=== PATIENT | male | born 1940 | race Caucasian/White ===

== ENCOUNTER 2017-01-22 08:24 | Day surgery (SDC) | payer OTHER, MEDICARE ==
[~2017-01-22] VITALS: Ht 175.3 cm; Wt 81.6 kg
[~2017-01-22 08:24] MED LIST: ATORVASTATIN CA40 MG PO; LO-DOSE ASPIRIN81 M2 PO; METOPROLOL SUCC50 MG PO
[2017-01-22 09:11] VITALS: BP 147/70
[2017-01-22] MEDS ORDERED: NORCO 5/3251 TABLET PO (11:56)
[2017-01-22 13:16] VITALS: BP 165/76
[2017-01-22 14:20] VITALS: BP 157/91
== END 2017-01-22 14:37 | disposition home or self-care (01) ==
LOC: SDC 08:24
PROC: 0YU50JZ Supplement Right Inguinal Region with Synthetic Substitute, Open Approach (ICD-10-PCS; principal; 2017-01-22)
DX: K40.90 Unilateral inguinal hernia, without obstruction or gangrene, not specified as recurrent (principal); E78.5 Hyperlipidemia, unspecified; D17.6 Benign lipomatous neoplasm of spermatic cord; I10 Essential (primary) hypertension; Z79.82 Long term (current) use of aspirin; Z82.49 Family history of ischemic heart disease and other diseases of the circulatory system; Z83.3 Family history of diabetes mellitus
CPT/HCPCS: 88304; C1781; J0330; J0690; J1100; J1170; J1885; J2405; J2710; J3010